=== PATIENT | female | born 1980 | race African-American/Black ===

== ENCOUNTER 2017-11-27 21:14 | Emergency (ER) | payer OTHER ==
[~2017-11-27] VITALS: Ht 175.3 cm; Wt 79.4 kg
[~2017-11-27 21:14] MED LIST: CIPROFLOXACIN500 M2 ORAL; IBUPROFEN600 MG ORAL; NAPROXEN SODIU550 M1 ORAL; NKM; NORCO 5-325 TA1 EACH ORAL; POLYTRIM OP SOL10 ML BOTH EYES
--- NOTE | 2017-11-27 21:48 | Emergency Room Report ---
History of Present Illness General Chief Complaint: Laceration Source: Patient Present Illness HPI Patient is a 37 year old who presented for right index finger laceration, right hand dominant . Patient stated that she was cleaning a glass which broke and cut the top of her hand. She denies any distal numbness or weakness. She denies foreign body sensation. Injury occurred prior to arrival Allergies: Coded Allergies: No Known Allergies (Unverified , 01/19/13) Patient History Past Medical History: see triage record Last Menstrual Period: 11/22/17 Now: No Reviewed Nursing Documentation: PMH: Agreed, PSxH: Agreed Nursing Documentation-PMH Past Medical History: No Stated History Review of Systems All Other Systems: negative except mentioned in HPI Physical Exam Vital Signs Date Time Temp Pulse Resp B/P (MAP) Pulse Ox O2 Delivery O2 Flow Rate FiO2 11/27/17 21:19 97.9 84 14 118/78 98 Room Air General Appearance: well appearing, no apparent distress, alert, GCS 15 Head: normocephalic, atraumatic ENT: hearing grossly normal, normal voice Neck: full range of motion, supple Respiratory: no respiratory distress, speaking full sentences Cardiovascular #1: normal inspection Musculoskeletal: normal inspection, back normal, no calf tenderness Neurologic: normal inspection, normal gait Psychiatric: mood/affect normal Skin: no rash, other - flap laceration to right pip index finger attacheed by small stalk Procedures Laceration/Wound Repair Laceration/Wound Repair : Consent: Emergent Wound Location: upper extremity Wound's Depth, Shape: flap Wound Length (cm): 1 Wound Explored: clean Irrigated w/ Saline (ccs): 30 Betadine Prep?: Yes Anesthesia: 1% Lidocaine Volume Anesthetic (ccs): 2 Wound Debrided: minimal Wound Repaired With: sutures Suture Size/Type: 5:0, nylon Number of Sutures: 6 Layer Closure?: No Patient Tolerated: Well Complications: None Medical Decision Making Diagnostic Impression: Primary Impression: Finger laceration ER Course Patient presented for laceration. Differential diagnoses included foreign body , nerve injury, arterial injury among others. Patient has a benign exam and does not appear to require any further imaging or laboratory testing at this time. The laceration was explored and there is no evidence of foreign body. Laceration was closed with suture. The patient is advised that she may require skin grafting of the flap has some issues due to vascular compromise. The splint was applied as well as sterile dressing and antibiotic ointment. The patient is advised to follow up with primary care doctor in 2-3 days for wound check . The patient was advised that suture removal in 10-14 days. Patient is advised to return if any worsening condition or if any changes in status that are concerning. This report is dictated with [employer] worker software which may occasionally lead to discrepancies related to use of this software. Last Vital Signs Date Time Temp Pulse Resp B/P (MAP) Pulse Ox O2 Delivery O2 Flow Rate FiO2 11/27/17 21:19 97.9 84 14 118/78 98 Room Air Status: improved Disposition: HOME, SELF-CARE Condition: Stable Scripts Ibuprofen* (MOTRIN*) 600 Mg Tablet 600 MG ORAL Q8H Y for For Pain, #30 TAB 0 Refills Prov: Hudson Parikh 11/27/17 Cephalexin* (KEFLEX*) 500 Mg Capsule 500 MG ORAL Q6H, #28 CAP 0 Refills Prov: Hudson Parikh 11/27/17 Bacitracin Zinc* (BACITRACIN ZINC*) 1 Each Packet 1 APPLIC TOPIC THREE TIMES A DAY, #20 PACKET Prov: Hudson Parikh 11/27/17 Hudson Parikh Nov 27, 2017 21:48
[2017-11-27 21:50] VITALS: BP 118/78
[2017-11-27] MEDS ORDERED: Lidocaine 1% MPF 10mg/ml 5ml ONE ×2 (21:58→22:00)
[2017-11-27] MEDS ORDERED: Bacitracin Oint UD TOPIC ONE ×2 (21:58→22:00)
[2017-11-27] MEDS ORDERED: Lidocaine 1% MPF 10mg/ml 5ml INJ ONE (22:00)
[2017-11-27] MEDS ORDERED: BACITRACIN ZIN1 EACH TOPIC (22:35)
[2017-11-27] MEDS ORDERED: KEFLEX500 MG ORAL (22:35)
[2017-11-27] MEDS ORDERED: IBUPROFEN600 MG ORAL (22:35)
[2017-11-27] MEDS ORDERED: Cephalexin 500mg cap ONE (22:39)
[2017-11-27] MEDS ORDERED: Tetanus/Diptheria/Pertussis Vaccine 0.5ml Syr IM ONE (22:45)
[2017-11-27] MEDS ORDERED: Cephalexin 500mg cap ORAL ONE (22:45)
[2017-11-27 23:10] VITALS: BP 119/76
== END 2017-11-27 23:15 | disposition home or self-care (01) ==
LOC: EMR 22:20
DX: S61.210A Laceration without foreign body of right index finger without damage to nail, initial encounter (principal); W25.XXXA Contact with sharp glass, initial encounter; Y92.9 Unspecified place or not applicable; Z23 Encounter for immunization
CPT/HCPCS: 90471; 90715; 99284